=== PATIENT | female | born 1980 | race Caucasian/White ===

== ENCOUNTER 2018-12-18 21:43 | Inpatient (IN) | payer MEDICAID ==
[~2018-12-18] VITALS: Ht 165.1 cm; Wt 51.7 kg
[2018-12-18 22:41] LABS: URINE HCG NEGATIVE (NEG)
[2018-12-18] MEDS ORDERED: ondansetron/PF 4mg/2ml inj IV ONE (22:45)
[2018-12-18] MEDS ORDERED: normal saline 1000ML IV soln IVB ONE (22:45)
[2018-12-18 22:47] LABS: BASOPHILS % (AUTO) 0.3 % (0-1); EOSINOPHILS % (AUTO) 0.2 % (0-6); HEMATOCRIT 40.8 % (35.0-45.0); HEMOGLOBIN 14.3 g/dl (12.0-16.0); LYMPHOCYTES # (AUTO) 2.4 X10'3 (1.1-4.8); LYMPHOCYTES % (AUTO) 20.4 % (21-51); MEAN CORPUSCULAR HEMOGLOBIN 33.1 PG (27.0-31.0); MEAN CORPUSCULAR HGB CONC 35.1 g/dL (33.0-36.5); MEAN CORPUSCULAR VOLUME 94.4 FL (78-98); MEAN PLATELET VOLUME 8.2 FL (7.4-10.4); MONOCYTES # (AUTO) 0.9 X10'3 (0-0.9); MONOCYTES % (AUTO) 7.8 % (2-12); NEUTROPHILS # (AUTO) 8.5 X10'3 (1.8-7.7); NEUTROPHILS % (AUTO) 71.3 % (42-75); PLATELET COUNT 337 X10'3 (140-440); RED BLOOD COUNT 4.32 X10'6 (4.20-5.60); RED CELL DISTRIBUTION WIDTH 13.8 % (11.5-14.5); WHITE BLOOD COUNT 11.9 X10'3 (4.5-11.0)
[2018-12-18 22:51] LABS: CLARITY,URINE CLOUDY (Clear); COLOR,URINE YELLOW (Yellow); GLUCOSE, URINE NEGATIVE (Neg); KETONES,URINE NEGATIVE (Neg); LEUKOCYTE ESTERASE ,URINE NEGATIVE (Neg); NITRITES, URINE NEGATIVE (Neg); OCCULT BLOOD,URINE SMALL (Neg); PH,URINE 7.5 (4.8-8.0); PROTEIN,URINE NEGATIVE (Neg)
[2018-12-18] MEDS ORDERED: iohexol 300mg/ml 100ml inj. ONE (22:53)
[2018-12-18] MEDS: morphine 4 MG/ML inj SYRINge IV PRN (22:54)
[2018-12-18 22:57] LABS: ALANINE AMINOTRANSFERASE 447 U/L (12-78); ALBUMIN/GLOBULIN RATIO 0.9 (1.1-1.5); ALKALINE PHOSPHATASE 128 IU/L (46-116); ANION GAP 10 (8-16); ASPARTATE AMINO TRANSFERASE 854 U/L (10-37); BILIRUBIN,TOTAL 1.5 MG/DL (0.1-1.0); BLOOD UREA NITROGEN 8 MG/DL (7-18); BUN/CREATININE RATIO 11.1 (6.6-38.0); CALCIUM 9.6 MG/DL (8.5-10.1); CHLORIDE 104 MMOL/L (99-107); CREATININE 0.72 MG/DL (0.40-0.90); GLUCOSE 113 MG/DL (70-104); LIPASE 234 U/L (73-393); POTASSIUM 3.7 MMOL/L (3.5-5.1); SODIUM 140 MMOL/L (135-145); TOTAL CARBON DIOXIDE 25.9 MMOL/L (24-32); TOTAL PROTEIN 8.4 G/DL (6.4-8.2); eGFR 90 ML/MIN
[2018-12-18 22:58] LABS: UA COLLECTION TYPE VOIDED
[2018-12-18 22:59] LABS: AMORPHOUS PHOSPHATES 4+; BACTERIA,URINE FEW /HPF (Neg); RBC,URINE 0-2 /HPF (0-2); SQUAMOUS EPITHELIAL CELL,UR FEW /LPF (FEW); WBC,URINE NONE SEEN /HPF (0-4)
[2018-12-19] MEDS: morphine 4 MG/ML inj SYRINge IV PRN (00:46)
[2018-12-19] MEDS ORDERED: nicotine 21mg patch - 24 hr TD ONE (01:05)
[2018-12-19] MEDS ORDERED: magnesium 2GM in 50ml NS 50 ML IV PRN (01:20)
[2018-12-19] MEDS ORDERED: ondansetron/PF 4mg/2ml inj IV PRN (01:20)
[2018-12-19] MEDS ORDERED: magnesium Cl slow-release 64mg tablet PO PRN (01:20)
[2018-12-19] MEDS ORDERED: potassium Cl 40MEQ/NS 500ml 500 ML IV PRN ×2 (01:20)
[2018-12-19] MEDS ORDERED: morphine 2 MG/ML inj. syringe IV PRN ×2 (01:20)
[2018-12-19] MEDS ORDERED: potassium Cl 20 mEq SR tablet PO PRN (01:20)
[2018-12-19] MEDS ORDERED: magnesium 4gm in 100ml NS 100 ML IV PRN (01:20)
[2018-12-19] MEDS ORDERED: NO HOME MEDS (01:31)
[2018-12-19] MEDS: normal saline 1000ml 1,000 ML IV SCH ×3 (01:46→21:19)
[2018-12-19 07:36] VITALS: BP 113/73
[2018-12-19] MEDS: K and/or MAG REPLACEMENT MC SCH (08:00)
[2018-12-19 08:29] LABS: BASOPHILS # (AUTO) 0.1 X10'3 (0-0.2); BASOPHILS % (AUTO) 0.8 % (0-1); EOSINOPHILS # (AUTO) 0.1 X10'3 (0-0.9); HEMATOCRIT 39.6 % (35.0-45.0); HEMOGLOBIN 13.3 g/dl (12.0-16.0); LYMPHOCYTES # (AUTO) 2.3 X10'3 (1.1-4.8); LYMPHOCYTES % (AUTO) 25.1 % (21-51); MEAN CORPUSCULAR HGB CONC 33.7 g/dL (33.0-36.5); MEAN PLATELET VOLUME 8.4 FL (7.4-10.4); MONOCYTES # (AUTO) 0.9 X10'3 (0-0.9); MONOCYTES % (AUTO) 10.4 % (2-12); NEUTROPHILS # (AUTO) 5.7 X10'3 (1.8-7.7); NEUTROPHILS % (AUTO) 62.7 % (42-75); PLATELET COUNT 298 X10'3 (140-440); RED BLOOD COUNT 4.17 X10'6 (4.20-5.60); RED CELL DISTRIBUTION WIDTH 14.1 % (11.5-14.5)
[2018-12-19 08:59] LABS: ALANINE AMINOTRANSFERASE 770 U/L (12-78); ALBUMIN 3.5 G/DL (3.4-5.0); ALBUMIN/GLOBULIN RATIO 0.9 (1.1-1.5); ALKALINE PHOSPHATASE 145 IU/L (46-116); ANION GAP 7 (8-16); ASPARTATE AMINO TRANSFERASE 1168 U/L (10-37); BILIRUBIN,TOTAL 2.6 MG/DL (0.1-1.0); BLOOD UREA NITROGEN 6 MG/DL (7-18); BUN/CREATININE RATIO 9.7 (6.6-38.0); CALCIUM 8.7 MG/DL (8.5-10.1); CHLORIDE 106 MMOL/L (99-107); CREATININE 0.62 MG/DL (0.40-0.90); GLUCOSE 96 MG/DL (70-104); POTASSIUM 3.4 MMOL/L (3.5-5.1); SODIUM 140 MMOL/L (135-145); TOTAL PROTEIN 7.4 G/DL (6.4-8.2); eGFR > 90 ML/MIN
[2018-12-19] MEDS: heparin, porcine 5000 units/ml vial SQ SCH ×2 (10:00→17:17)
[2018-12-19] MEDS: nicotine 21mg patch - 24 hr TD SCH ×2 (10:00→10:01)
--- NOTE | 2018-12-19 10:09 | NUR ---
pT. HAS NOT VOIDED AT THIS TIME Addendum: 12/19/18 at 1010 by Fiorella Wright RN Amended: Links added.
[2018-12-19 11:00] VITALS: BP 123/80
--- NOTE | 2018-12-19 14:05 | NUR ---
MRCP results in- MD notified.
[2018-12-19] MEDS: potassium Cl 20 mEq SR tablet PO PRN ×2 (15:36→19:35)
[2018-12-19 19:00] VITALS: BP 135/69
--- NOTE | 2018-12-19 19:04 | NUR ---
Pt. not in room during last hourly round. Belongings still in room. pt seen in her street clothes with boyfriend headed down the elevator. Report given to Melissa SCHWARTZ. Security called.
[2018-12-20] VITALS (15 sets, daily range): BP systolic 94–139; BP diastolic 54–90
[2018-12-20] MEDS: potassium Cl 20 mEq SR tablet PO PRN (00:16)
[2018-12-20] MEDS: heparin, porcine 5000 units/ml vial SQ SCH ×3 (00:16→16:00)
[2018-12-20 05:13] LABS: BASOPHILS # (AUTO) 0.1 X10'3 (0-0.2); BASOPHILS % (AUTO) 1.4 % (0-1); EOSINOPHILS # (AUTO) 0.1 X10'3 (0-0.9); EOSINOPHILS % (AUTO) 2.7 % (0-6); HEMOGLOBIN 12.8 g/dl (12.0-16.0); LYMPHOCYTES # (AUTO) 2.3 X10'3 (1.1-4.8); LYMPHOCYTES % (AUTO) 41.9 % (21-51); MEAN CORPUSCULAR HGB CONC 33.7 g/dL (33.0-36.5); MEAN CORPUSCULAR VOLUME 94.9 FL (78-98); MEAN PLATELET VOLUME 8.7 FL (7.4-10.4); MONOCYTES # (AUTO) 0.5 X10'3 (0-0.9); MONOCYTES % (AUTO) 9.1 % (2-12); NEUTROPHILS # (AUTO) 2.5 X10'3 (1.8-7.7); NEUTROPHILS % (AUTO) 44.9 % (42-75); PLATELET COUNT 263 X10'3 (140-440); RED CELL DISTRIBUTION WIDTH 14.1 % (11.5-14.5); WHITE BLOOD COUNT 5.5 X10'3 (4.5-11.0)
[2018-12-20 05:21] LABS: ALANINE AMINOTRANSFERASE 634 U/L (12-78); ALBUMIN 3.1 G/DL (3.4-5.0); ALBUMIN/GLOBULIN RATIO 0.8 (1.1-1.5); ALKALINE PHOSPHATASE 155 IU/L (46-116); ANION GAP 8 (8-16); ASPARTATE AMINO TRANSFERASE 429 U/L (10-37); BILIRUBIN,TOTAL 1.2 MG/DL (0.1-1.0); BLOOD UREA NITROGEN 4 MG/DL (7-18); BUN/CREATININE RATIO 6.6 (6.6-38.0); CALCIUM 8.6 MG/DL (8.5-10.1); CHLORIDE 106 MMOL/L (99-107); CREATININE 0.61 MG/DL (0.40-0.90); GLUCOSE 95 MG/DL (70-104); MAGNESIUM 1.9 MG/DL (1.5-2.4); POTASSIUM 4.4 MMOL/L (3.5-5.1); SODIUM 137 MMOL/L (135-145); TOTAL CARBON DIOXIDE 23.2 MMOL/L (24-32); TOTAL PROTEIN 6.8 G/DL (6.4-8.2); eGFR > 90 ML/MIN
[2018-12-20] MEDS: K and/or MAG REPLACEMENT MC SCH (08:00)
--- NOTE | 2018-12-20 08:14 | NUR ---
Pt. in room resting in bed with her sig. other. PAGER ID: [phone] MESSAGE: [phone] Evgeny Li Pt. eager to go home. daughter's 17th birthday. ERCP scheduled today? Fiorella [id number]
[2018-12-20] MEDS: nicotine 21mg patch - 24 hr TD SCH (08:32)
[2018-12-20] MEDS: normal saline 1000ml 1,000 ML IV SCH ×2 (08:33→17:19)
[2018-12-20] MEDS ORDERED: fentaNYL/PF 50MCG/1 ML 2ML syringe ONE (13:59)
[2018-12-20] MEDS ORDERED: meperidine/PF 100mg/ml syringe ONE (13:59)
[2018-12-20] MEDS ORDERED: iohexol 300 MG/1 ML 50ml polymer ONE (14:00)
[2018-12-20] MEDS ORDERED: glucagon, human recombinant 1mg kit ONE (14:00)
[2018-12-20] MEDS ORDERED: MIDAZolam 5mg/5ml vial ONE (14:00)
[2018-12-20] MEDS ORDERED: diphenhydrAMINE 50 mg/ml inj ONE (14:00)
[2018-12-20] MEDS ORDERED: levoFLOXACIN-Levaquin 500mg/D5 100 ML IV ONE (14:00)
[2018-12-20] MEDS ORDERED: LIDOcaine Viscous 15ml cup ONE (14:00)
--- NOTE | 2018-12-20 16:47 | NUR ---
Pt. back on floor from GI lab. ERCP performed with gallstone removal and stent placement. Stent to be removed in 6-8 weeks.
--- NOTE | 2018-12-20 18:31 | NUR ---
Patient in room [facility]. I have received report from Fiorella SCHWARTZ and had the opportunity to ask questions and assume patient care with Tammy SCHWARTZ and Maria De Jesus SCHWARTZ.
[2018-12-20] MEDS ORDERED: LEVO500T89 PO (18:50)
--- NOTE | 2018-12-20 18:52 | NUR ---
Pt. in room with significant other. Gave report to Tammy SCHWARTZ and Maria De Jesus SCHWARTZ.
--- NOTE | 2018-12-20 19:58 | NUR ---
pt. discharged to home via private car with in stable condition. DC instructions given to pt. with verbalized understanding. All belongings sent home with pt.
== END 2018-12-20 19:30 | disposition home or self-care (01) ==
LOC: ER 21:44 → SUR 3N 12-19 06:53
PROVIDERS: ADMIT Family Medicine; ATTEND Hospitalist
PROC: BW201ZZ Computerized Tomography (CT Scan) of Abdomen using Low Osmolar Contrast (ICD-10-PCS; 2018-12-19)
PROC: 0F798DZ Dilation of Common Bile Duct with Intraluminal Device, Via Natural or Artificial Opening Endoscopic (ICD-10-PCS; principal; 2018-12-20)
PROC: 0FC98ZZ Extirpation of Matter from Common Bile Duct, Via Natural or Artificial Opening Endoscopic (ICD-10-PCS; 2018-12-20)
DX: K80.51 Calculus of bile duct without cholangitis or cholecystitis with obstruction (principal); K75.89 Other specified inflammatory liver diseases; F12.90 Cannabis use, unspecified, uncomplicated; F17.210 Nicotine dependence, cigarettes, uncomplicated; M51.36 Other intervertebral disc degeneration, lumbar region; Z80.3 Family history of malignant neoplasm of breast; Z80.51 Family history of malignant neoplasm of kidney; Z85.41 Personal history of malignant neoplasm of cervix uteri; Z90.49 Acquired absence of other specified parts of digestive tract; Z88.8 Allergy status to other drugs, medicaments and biological substances
CPT/HCPCS: 36415; 43274; 74177; 74181; 80053; 81001; 81025; 83690; 83735; 85025; 85610; 87070; 96361; 96374; 96375; 96376; 99152; 99153; 99285; A4620; G0378; J1200; J1610; J1644; J1956; J2175; J2250; J2270; J2405; J3010; J3480; J7030; Q9967

== ENCOUNTER 2019-08-24 13:06 | Emergency (ER) | payer MEDICAID ==
[~2019-08-24] VITALS: Ht 165.1 cm; Wt 61.4 kg
[~2019-08-24 13:06] MED LIST: NO HOME MEDS
[2019-08-24 13:19] VITALS: BP 111/70
[2019-08-24] MEDS ORDERED: orphenadrine citrate 60mg/2ml inj. IM ONE (14:50)
[2019-08-24] MEDS ORDERED: ketorolac tromethamine 15mg/ml inj. IM ONE (14:50)
[2019-08-24] MEDS ORDERED: IBUP-1985 PO (15:31)
[2019-08-24] MEDS ORDERED: TIZA4TAB11 PO (15:31)
== END 2019-08-24 15:39 | disposition home or self-care (01) ==
LOC: ER 13:06
DX: S30.0XXA Contusion of lower back and pelvis, initial encounter (principal); J02.9 Acute pharyngitis, unspecified; G89.29 Other chronic pain; Z79.899 Other long term (current) drug therapy; Y04.8XXA Assault by other bodily force, initial encounter; Y93.89 Activity, other specified; Y92.89 Other specified places as the place of occurrence of the external cause; Y99.8 Other external cause status
CPT/HCPCS: 72100; 96372; 99284; J1885; J2360

== ENCOUNTER 2020-07-05 03:33 | Emergency (ER) | payer MEDICAID ==
[~2020-07-05] VITALS: Ht 165.1 cm; Wt 63.6 kg
[~2020-07-05 03:33] MED LIST changes: +IBUP-1985 PO; +TIZA4TAB11 PO
[2020-07-05 03:36] VITALS: BP 142/88
[2020-07-05] MEDS ORDERED: ketorolac trometh. 30mg/ml inj. IM ONE (03:50)
== END 2020-07-05 04:00 | disposition home or self-care (01) ==
LOC: ER 03:34
DX: R10.30 Lower abdominal pain, unspecified (principal); G89.29 Other chronic pain; F15.10 Other stimulant abuse, uncomplicated; M54.9 Dorsalgia, unspecified; F17.200 Nicotine dependence, unspecified, uncomplicated; Z85.41 Personal history of malignant neoplasm of cervix uteri; Z79.899 Other long term (current) drug therapy
CPT/HCPCS: 96372; 99283; J1885